=== PATIENT | male | born 1985 ===

== ENCOUNTER 2018-08-18 13:46 | Emergency (ER) | payer SELFPAY ==
[2018-08-18 15:03] VITALS: BP 142/87; PULSE 91; RESP 16; TEMP 98.1
--- NOTE | 2018-08-18 17:01 | RAD ---
Date of service: 08/18/2018 HISTORY: Cough and fever COMPARISON: No prior. TECHNIQUE: Chest PA and lateral FINDINGS: LINES AND TUBES: None. LUNG AND PLEURA: The lungs are well inflated and clear. No pleural effusion or pneumothorax. HEART AND MEDIASTINUM: The heart is not enlarged. No aortic atherosclerotic calcifications present. The hilar and mediastinal contours are within normal limits. SKELETAL STRUCTURES: The bony structures are within normal limits for the patient's age. VISUALIZED UPPER ABDOMEN: Normal. OTHER FINDINGS: None. IMPRESSION: No active pulmonary disease.
[2018-08-18 17:33] VITALS: O2SAT 100
--- NOTE | 2018-08-18 18:02 | ED PDOC ---
HPI: Influenza Time Seen by Provider: 08/18/18 16:03 Chief Complaint: Flu-like Symptoms Chief Complaint (Provider): Flu-like Symptoms History Per: Patient Exam Limitations: no limitations Have you had recent travel within the past 21 days to any of: No Onset/Duration Of Symptoms: Days (X3) Symptoms include: fever, bodyaches, sore throat, other (chills, runny nose ) Additional complaint(s):: 33 year old male with a past medical history of hypertension presents to the ED with nonproductive cough associated with sore throat, runny nose, fever, body aches and chills onset 3 days. Patient states that his mother is also sick with the same symptoms. Patient denies any recent travel. PMD: Richard Laguna MD Past Medical History Reviewed: Historical Data Vital Signs: Last Vital Signs Temp 98.1 F 08/18/18 15:01 Pulse 91 H 08/18/18 15:01 Resp 16 08/18/18 15:01 BP 142/87 08/18/18 15:01 Pulse Ox 100 08/18/18 17:20 GALOL Report Viewed: Yes - Medical History PMH: HTN - Surgical History Surgical History: Appendectomy - Family History Family History: States: No Known Family Hx - Social History Current smoker - smoking cessation education provided: Yes - Immunization History Hx Tetanus Toxoid Vaccination: No Hx Influenza Vaccination: No Hx Pneumococcal Vaccination: No - Home Medications Home Medications: Ambulatory Orders Medication Instructions Recorded Azithromycin [Zithromax] 250 mg PO DAILY #6 tab 06/24/16 Ciprofloxacin/Hydrocortisone 10 ml XX BID 7 Days morris 06/24/16 [Cipro Hc 0.2%-1% 10 ml] Acetaminophen [Tylenol Extra 1,000 mg PO Q6 PRN #100 tablet 08/18/18 Strength] Ibuprofen [Motrin Tab] 600 mg PO Q8 PRN #60 tab 08/18/18 Oseltamivir Cap [Tamiflu] 75 mg PO BID #10 cap 08/18/18 - Allergies Allergies/Adverse Reactions: Allergies Allergy/AdvReac Type Severity Reaction Status Date / Time Penicillins Allergy RASH Verified 08/18/18 15:00 Review of Systems ROS Statement: Except As Marked, All Systems Reviewed And Found Negative Constitutional: Positive for: Fever, Chills ENT: Positive for: Nose Congestion Respiratory: Positive for: Cough Musculoskeletal: Positive for: Other (body aches) Physical Exam - Reviewed Nursing Documentation Reviewed: Yes Vital Signs Reviewed: Yes - Physical Exam Appears: Positive for: Non-toxic, No Acute Distress (but looks tired) Head Exam: Positive for: ATRAUMATIC, NORMOCEPHALIC Skin: Positive for: Warm, Dry Eye Exam: Positive for: EOMI, PERRL ENT: Positive for: Pharynx Is (erythematous ). Negative for: Tonsillar Exudate, Tonsillar Swelling Neck: Positive for: Painless ROM, Supple Cardiovascular/Chest: Positive for: Regular Rate, Rhythm. Negative for: Murmur Respiratory: Positive for: Rhonchi (faint bilaterally), Other (good air movement). Negative for: Rales, Wheezing, Respiratory Distress Gastrointestinal/Abdominal: Positive for: Soft. Negative for: Tenderness Back: Positive for: Normal Inspection. Negative for: Decreased ROM Extremity: Positive for: Normal ROM. Negative for: Deformity Lymphatic: Negative for: Adenopathy Neurological/Psych: Positive for: Awake, Alert. Negative for: Motor/Sensory Deficits Medical Decision Making Medical Decision Making: Initial Impression: Flu like illness Differential includes bronchitis and pneumonia Time: 16:03 Initial Plan: -Xray Chest two views -Motrin 600 mg PO -Tamiflu 75 mg PO -Throat Culture -Influenza A B -Rapid Strep Group A antigen -re-evaluation CXR unremarkable Flu test positive DW pt findings and plan of care Rest, fluids, symptomatic treatment. Discussed use of tamiflu in this setting. Scribe Attestation: Documented by Raven Monterroso, acting as a scribe for Keren Green MD Provider Scribe Attestation: All medical record entries made by the Scribe were at my direction and pe rsonally dictated by me. I have reviewed the chart and agree that the record accurately reflects my personal performance of the history, physical exam, medical decision making, and the department course for this patient. I have also personally directed, reviewed, and agree with the discharge instructions and disposition - ECG O2 Sat by Pulse Oximetry: 100 Disposition - Clinical Impression Clinical Impression: Influenza - Disposition Referrals: Richard Vaughn MD [Family Provider] - (FOLLOWUP WITH DR VAUGHN BY THE END OF THE WEEK) Disposition: Routine/Home Disposition Time: 17:00 Condition: STABLE Additional Instructions: DRINK PLENTY OF HYDRATING FLUIDS AND REST Prescriptions: Acetaminophen [Tylenol Extra Strength] 1,000 mg PO Q6 PRN #100 tablet PRN Reason: FEVER OR PAIN Ibuprofen [Motrin Tab] 600 mg PO Q8 PRN #60 tab PRN Reason: Pain, Moderate (4-7) Oseltamivir Cap [Tamiflu] 75 mg PO BID #10 cap Instructions: Flu, Adult (DC) Forms: [facility] ED School/Work Excuse
== END 2018-08-18 17:20 | disposition home or self-care (01) ==
LOC: H.ER 13:46
DX: J11.1 Influenza due to unidentified influenza virus with other respiratory manifestations (principal); I10 Essential (primary) hypertension; Z88.0 Allergy status to penicillin